=== PATIENT | male | born 1955 | race Caucasian/White ===

== ENCOUNTER → 2016-11-16 | Outpatient (CLI) | payer OTHER | LOC: RAD 08:04 | PROVIDERS: ATTEND Family Medicine | DX: Z53.9 Procedure and treatment not carried out, unspecified reason (principal) ==

== ENCOUNTER → 2016-11-21 | Outpatient (CLI) | payer OTHER ==
--- NOTE | 2016-11-21 13:22 | Diagnostic Imaging Report ---
PROCEDURE: US abdomen complete. TECHNIQUE: Multiple real-time grayscale images were obtained over the abdomen in various projections. INDICATION: Abdominal pain, right upper quadrant and right lower quadrant pain. Fullness. EXAMINATION: Ultrasound abdomen dated 11/21/2016. FINDINGS: Grayscale and color Doppler ultrasound imaging of the abdomen is performed. The liver demonstrates diffuse fatty infiltration. No masses are seen. There is no intrahepatic biliary dilatation. Common duct is normal in size. No stone is seen in the gallbladder. Gallbladder wall is unremarkable. The tail of the pancreas is not well seen. The remaining visualized pancreas is unremarkable. The visualized aspects of the spleen demonstrate no gross abnormalities. Visualized aorta and IVC are unremarkable. The right kidney is 13.1 cm in greatest dimension. There is a question of possible duplicated system; however, no hydronephrosis is appreciated. Left kidney is 11 cm in greatest dimension and unremarkable. There is no ascites. IMPRESSION: 1. 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 If there is continued clinical question for such a process, CT imaging with and without contrast recommended. 2. Fatty infiltration throughout the liver. 3. Remaining visualized structures unremarkable. Dictated by: Dictated on workstation # [id number]
== END ==
LOC: RAD 08:36
PROVIDERS: ATTEND Family Medicine
DX: R10.84 Generalized abdominal pain (principal); K76.0 Fatty (change of) liver, not elsewhere classified
CPT/HCPCS: 76700